=== PATIENT | female | born 1955 | race Asian ===

== ENCOUNTER 2023-07-23 18:07 | Emergency (ER) | payer BC ==
[~2023-07-23] VITALS: Ht 152.4 cm; Wt 53.5 kg
[2023-07-23 18:07] VITALS: BP_SYST 140; PULSE 80; RESP 18; TEMP 97.8; O2SAT 98
[2023-07-23] MEDS: LIDOCAINE PATCH 5% 1 EA TP ONE (19:17)
[2023-07-23] MEDS ORDERED: LIDO700A30 TP (20:27)
[2023-07-23] MEDS ORDERED: IBUP-1969 PO (20:27)
[2023-07-23 20:34] VITALS: BP_SYST 123; PULSE 74; RESP 17; TEMP 97.9; O2SAT 96
== END 2023-07-23 20:34 | disposition home or self-care (01) ==
LOC: SED 18:07
DX: S93.401A Sprain of unspecified ligament of right ankle, initial encounter (principal); S80.01XA Contusion of right knee, initial encounter; S20.211A Contusion of right front wall of thorax, initial encounter; E11.9 Type 2 diabetes mellitus without complications; I10 Essential (primary) hypertension; E78.5 Hyperlipidemia, unspecified; Z79.899 Other long term (current) drug therapy; W01.0XXA Fall on same level from slipping, tripping and stumbling without subsequent striking against object, initial encounter; Y93.89 Activity, other specified; Y92.89 Other specified places as the place of occurrence of the external cause; Y99.8 Other external cause status
CPT/HCPCS: 71045; 71100; 73560; 99284